=== PATIENT | male | born 1970 | race Caucasian/White ===

== ENCOUNTER 2017-06-05 07:17 | Emergency (ER) | payer SELFPAY ==
[~2017-06-05] VITALS: Ht 175.3 cm; Wt 90.0 kg
[2017-06-05] MEDS ORDERED: KETOROLAC 60MG/2ML VIAL IM ONE (10:45)
[2017-06-05 11:35] LABS: CHLORIDE 103 mEq/L (98-107)
[2017-06-05 11:38] LABS: BASOPHILS % 0.7 % (0.0-2.0); EOSINOPHILS % 2.3 % (0.0-5.0); HEMATOCRIT. 42.9 % (42.0-52.0); HEMOGLOBIN. 14.6 g/dL (14.0-18.0); LYMPHOCYTES % 31.5 % (20.0-50.0); MEAN CORPUSCULAR HEMOGLOBIN 28.8 pg (28.0-32.0); MEAN CORPUSCULAR VOLUME 84.6 fL (80.0-94.0); MEAN PLATELET VOLUME 9.1 fl (7.4-10.4); MONOCYTES % 8.7 % (2.0-8.0); NEUTROPHILS % 56.8 % (40.0-76.0); PLATELET 393 x1000/uL (130-400); RED BLOOD CELL COUNT 5.07 mill/uL (4.7-6.1); RED CELL DISTRIBUTION WIDTH 13.6 % (11.6-14.6)
[2017-06-05 11:56] VITALS: BP 124/79
== END 2017-06-05 13:00 | disposition home or self-care (01) ==
LOC: ER 12:56
DX: M79.675 Pain in left toe(s) (principal); M79.672 Pain in left foot
CPT/HCPCS: 36415; 73630; 80053; 84550; 85025; 96372; 99285; J1885

== ENCOUNTER 2017-07-09 16:02 | Emergency (ER) | payer SELFPAY ==
[~2017-07-09] VITALS: Ht 180.3 cm; Wt 83.0 kg
[2017-07-09 16:21] VITALS: BP 101/65
== END 2017-07-09 17:35 | disposition home or self-care (01) ==
LOC: ER 17:16
DX: M10.9 Gout, unspecified (principal)
CPT/HCPCS: 99283

== ENCOUNTER 2018-07-06 07:46 | Emergency (ER) | payer MEDICAID ==
[~2018-07-06] VITALS: Ht 177.8 cm; Wt 84.0 kg
[2018-07-06] MEDS ORDERED: DEXAMETHASONE 10 MG/ML VIAL IM ONE (09:00)
[2018-07-06] MEDS ORDERED: LORAZEPAM 1MG TABLET PO ONE (09:00)
[2018-07-06] MEDS ORDERED: KETOROLAC 60MG/2ML VIAL IM ONE (09:00)
[2018-07-06 10:54] VITALS: BP 122/76
== END 2018-07-06 10:58 | disposition home or self-care (01) ==
LOC: ER 07:52
DX: S16.1XXA Strain of muscle, fascia and tendon at neck level, initial encounter (principal); R07.89 Other chest pain; M10.9 Gout, unspecified; X58.XXXA Exposure to other specified factors, initial encounter; Y93.89 Activity, other specified; Y92.013 Bedroom of single-family (private) house as the place of occurrence of the external cause
CPT/HCPCS: 71045; 93005; 96372; 99283; J1100; J1885